=== PATIENT | female | born 1960 | race American Indian/Alaskan Native ===

== ENCOUNTER 2020-09-11 04:51 | Emergency (ER) | payer MEDICARE ==
[2020-09-11 05:19] VITALS: BP 117/91
[2020-09-11 06:24] LABS: Basophils # (Auto) 0.1 K/mm3 (0.0-0.1); Basophils % (Auto) 0.8 % (0.0-1.8); Eosinophils # (Auto) 0.1 K/mm3 (0.0-0.4); Eosinophils % (Auto) 1.1 % (0.0-4.3); Hemoglobin 14.9 gm/dl (10.1-14.3); Lymphocytes # (Auto) 2.6 K/mm3 (1.2-5.4); Lymphocytes % (Auto) 34.5 % (13.4-35.0); Mean Corpuscular HGB Conc 34 % (30-34); Mean Corpuscular Volume 92 fl (79-97); Monocytes # (Auto) 0.7 K/mm3 (0.0-0.8); Monocytes % (Auto) 9.1 % (0.0-7.3); Platelet Count 392 K/mm3 (140-440); Red Blood Count 4.77 M/mm3 (3.65-5.03)
[2020-09-11 06:27] LABS: Alanine Aminotransferase 15 units/L (7-56); Albumin 4.3 g/dL (3.9-5); BUN/Creatinine Ratio 15; Blood Urea Nitrogen 12 mg/dL (7-17); Calcium 10.1 mg/dL (8.4-10.2); Hemolysis Index 7
[2020-09-11 06:48] LABS: Bilirubin,Urine NEG (Negative); Blood,Urine MOD (Negative); Color,Urine Yellow (Yellow); Hyaline Casts,Urine 1 /LPF; Mucus,Urine 1+ /HPF; Protein,Urine <15 mg/dL mg/dL (Negative); Urobilinogen,Urine < 2.0 mg/dL (<2.0)
--- NOTE | 2020-09-11 07:54 | Emergency Department Report ---
ED General Adult HPI - General Chief complaint: Abdominal Pain Stated complaint: BACK AND PAIN IN BOTH SIDES Time Seen by Provider: 09/11/20 07:44 Source: patient, EMS Mode of arrival: Ambulatory Limitations: No Limitations - History of Present Illness Initial comments: This is a very pleasant 60-year-old female who presents the emergency department the chief complaint of right-sided flank pain over the past 5 days. Patient reports in May she had an injury where she injured the right side of her back and has had chronic pain since. She has been taking ibuprofen for the pain is concerned she may have overdone it on the ibuprofen and wants to make sure her kidneys are still functioning normally. She denies any dysuria, hematuria, fever, chills, night sweats, headache, dizziness, blurred vision, nausea, vomiting, diarrhea, weakness or any other associated symptoms. She denies any pain in the abdomen. Her pain is aggravated with movement specifically twisting the upper body and flexion. She states she has had cramping pain in the mid back that she rates as a 8 out of 10 in severity. - Related Data Home Medications Medication Instructions Recorded Confirmed Last Taken Ibuprofen [Motrin 400 MG tab] 400 mg PO Q8H PRN 11/24/14 11/24/14 Unknown Pravastatin [Pravachol] 40 mg PO QHS 11/24/14 11/24/14 Unknown Ranitidine HCl [Ranitidine] 150 day PO BID 11/24/14 11/24/14 Unknown Venlafaxine Xr [Effexor XR] 75 mg PO DAILY 11/24/14 11/24/14 Unknown Previous Rx's Medication Instructions Recorded Last Taken Type Sennosides/Docusate Sodium 1 each PO BID #16 tablet 11/28/14 Unknown Rx [Sennosides-Docusate Sodium Tab] levoFLOXacin [Levaquin] 500 mg PO QDAY #4 tablet 11/28/14 Unknown Rx metroNIDAZOLE [Flagyl] 500 mg PO Q8HR #12 tablet 11/28/14 Unknown Rx oxyCODONE /ACETAMINOPHEN [Percocet 1 tab PO Q6HR PRN #24 tablet 11/28/14 Unknown Rx 5/325] methOCARBAMOL [Robaxin TAB] 500 mg PO Q6H #20 tablet 09/11/20 Unknown Rx methylPREDNISolone [Medrol 4MG 4 mg PO ONCE #1 tab.ds.pk 09/11/20 Unknown Rx DOSEPAK (21 tabs)] Allergies Allergy/AdvReac Type Severity Reaction Status Date / Time No Known Allergies Allergy Verified 12/27/14 12:11 ED Review of Systems ROS: Stated complaint: BACK AND PAIN IN BOTH SIDES Other details as noted in HPI Comment: All other systems reviewed and negative Constitutional: denies: chills, fever Eyes: denies: eye pain, eye discharge, vision change ENT: denies: ear pain, throat pain Respiratory: denies: cough, shortness of breath, wheezing Cardiovascular: denies: chest pain, palpitations Endocrine: no symptoms reported Gastrointestinal: denies: abdominal pain, nausea, diarrhea Genitourinary: denies: urgency, dysuria, discharge Musculoskeletal: as per HPI, back pain. denies: joint swelling, arthralgia Skin: denies: rash, lesions Neurological: denies: headache, weakness, paresthesias Psychiatric: denies: anxiety, depression Hematological/Lymphatic: denies: easy bleeding, easy bruising ED Past Medical Hx - Past Medical History Previous Medical History?: Yes Hx Hypertension: (high cholesterol) Hx GERD: Yes Hx Psychiatric Treatment: Yes (DEPRESSION) Additional medical history: TBI. IBS. HIGH CHOLESTEROL - Surgical History Additional Surgical History: HYSTERECTOMY. BRAIN SURGERY. RIGHT KNEE SURGERY. TEMP. COLOSTOMY AND REVERSAL - Social History Smoking Status: Current Every Day Smoker - Medications Home Medications: Home Medications Medication Instructions Recorded Confirmed Last Taken Type Ibuprofen [Motrin 400 MG tab] 400 mg PO Q8H PRN 11/24/14 11/24/14 Unknown History Pravastatin [Pravachol] 40 mg PO QHS 11/24/14 11/24/14 Unknown History Ranitidine HCl [Ranitidine] 150 day PO BID 11/24/14 11/24/14 Unknown History Venlafaxine Xr [Effexor XR] 75 mg PO DAILY 11/24/14 11/24/14 Unknown History Sennosides/Docusate Sodium 1 each PO BID #16 tablet 11/28/14 Unknown Rx [Sennosides-Docusate Sodium Tab] levoFLOXacin [Levaquin] 500 mg PO QDAY #4 tablet 11/28/14 Unknown Rx metroNIDAZOLE [Flagyl] 500 mg PO Q8HR #12 tablet 11/28/14 Unknown Rx oxyCODONE /ACETAMINOPHEN [Percocet 1 tab PO Q6HR PRN #24 tablet 11/28/14 Unknown Rx 5/325] methOCARBAMOL [Robaxin TAB] 500 mg PO Q6H #20 tablet 09/11/20 Unknown Rx methylPREDNISolone [Medrol 4MG 4 mg PO ONCE #1 tab.ds.pk 09/11/20 Unknown Rx DOSEPAK (21 tabs)] ED Physical Exam - General Limitations: No Limitations General appearance: alert, in no apparent distress - Head Head exam: Present: atraumatic, normocephalic - Eye Eye exam: Present: normal appearance - ENT ENT exam: Present: normal exam, normal orophraynx, mucous membranes moist - Neck Neck exam: Present: normal inspection, full ROM. Absent: tenderness, mening ismus - Respiratory Respiratory exam: Present: normal lung sounds bilaterally. Absent: respiratory distress, wheezes, rales, rhonchi, stridor - Cardiovascular Cardiovascular Exam: Present: regular rate, normal rhythm, normal heart sounds. Absent: systolic murmur, diastolic murmur, rubs, gallop - GI/Abdominal GI/Abdominal exam: Present: soft, normal bowel sounds, other (Negative Parrish sign, negative McBurney's point tenderness). Absent: distended, tenderness, guarding, rebound, rigid - Extremities Exam Extremities exam: Present: normal inspection, full ROM, normal capillary refill. Absent: tenderness, calf tenderness (No lower extremity edema, negative Homans' sign bilaterally) - Back Exam Back exam: Present: normal inspection, full ROM, tenderness (Tenderness to palpation over the right flank area ), muscle spasm, paraspinal tenderness. Absent: vertebral tenderness - Neurological Exam Neurological exam: Present: alert, oriented X3, CN II-XII intact, normal gait - Psychiatric Psychiatric exam: Present: normal affect, normal mood - Skin Skin exam: Present: warm, dry, intact, normal color. Absent: rash ED Course Vital Signs 09/11/20 09/11/20 05:16 07:43 Temperature 98.2 F Pulse Rate 97 H Respiratory 18 Rate Blood Pressure 117/91 O2 Sat by Pulse 92 99 Oximetry ED Medical Decision Making - Lab Data Result diagrams: 09/11/20 05:42 09/11/20 05:42 Lab Results 09/11/20 09/11/20 09/11/20 Range/Units 05:42 05:42 Unknown WBC 7.6 (4.5-11.0) K/mm3 RBC 4.77 (3.65-5.03) M/mm3 Hgb 14.9 H (10.1-14.3) gm/dl Hct 44.0 H (30.3-42.9) % MCV 92 (79-97) fl MCH 31 (28-32) pg MCHC 34 (30-34) % RDW 14.0 (13.2-15.2) % Plt Count 392 (140-440) K/mm3 Lymph % (Auto) 34.5 (13.4-35.0) % [place] % (Auto) 9.1 H (0.0-7.3) % Eos % (Auto) 1.1 (0.0-4.3) % Baso % (Auto) 0.8 (0.0-1.8) % Lymph # (Auto) 2.6 (1.2-5.4) K/mm3 [place] # (Auto) 0.7 (0.0-0.8) K/mm3 Eos # (Auto) 0.1 (0.0-0.4) K/mm3 Baso # (Auto) 0.1 (0.0-0.1) K/mm3 Seg Neutrophils % 54.5 (40.0-70.0) % Seg Neutrophils # 4.1 (1.8-7.7) K/mm3 Sodium 142 (137-145) mmol/L Potassium 4.5 (3.6-5.0) mmol/L Chloride 104.3 (98-107) mmol/L Carbon Dioxide 25 (22-30) mmol/L Anion Gap 17 mmol/L BUN 12 (7-17) mg/dL Creatinine 0.8 (0.6-1.2) mg/dL Estimated GFR > 60 ml/min BUN/Creatinine Ratio 15 % Glucose 104 H (65-100) mg/dL Calcium 10.1 (8.4-10.2) mg/dL Total Bilirubin 0.40 (0.1-1.2) mg/dL AST 20 (5-40) units/L ALT 15 (7-56) units/L Alkaline Phosphatase 95 (35-129) units/L Total Protein 7.8 (6.3-8.2) g/dL Albumin 4.3 (3.9-5) g/dL Albumin/Globulin Ratio 1.2 % Urine Color Yellow (Yellow) Urine Turbidity Clear (Clear) Urine pH 5.0 (5.0-7.0) Ur Specific [place] 1.018 (1.003-1.030) Urine Protein <15 mg/dl (Negative) mg/dL Urine Glucose (UA) Neg (Negative) mg/dL Urine Ketones Neg (Negative) mg/dL Urine Blood Mod (Negative) Urine Nitrite Neg (Negative) Urine Bilirubin Neg (Negative) Urine Urobilinogen < 2.0 (<2.0) mg/dL Ur Leukocyte Esterase Neg (Negative) Urine WBC (Auto) 1.0 (0.0-6.0) /HPF Urine RBC (Auto) 3.0 (0.0-6.0) /HPF U Epithel Cells (Auto) 1.0 (0-13.0) /HPF Hyaline Casts 1 /LPF Urine Mucus 1+ /HPF - Medical Decision Making Patient presented emergency department chief complaint of right flank pain. Labs were drawn and relatively unremarkable. She had no right upper quadrant tenderness and negative Parrish sign with normal LFTs and bili making acute cholecystitis, cholelithiasis, choledocholithiasis unlikely. She had relatively normal urine with no significant hematuria or pyuria making kidney stones and pyelonephritis unlikely respectively. She had relatively normal vital signs with heart rate below 100 and O2 sat in the room was 99% on room air with a low Wells risk for PE making this unlikely. She had no pleuritic pain with deep breaths or shortness of breath. She had normal lung sounds no fever making a pneumonia unlikely. The patient's pain was reproducible on palpation and movement and suspect this is likely musculoskeletal in origin. Recommended naproxen and Robaxin and outpatient follow-up with her primary care doctor. Recommended if her symptoms change or worsen she return to the emergency dep artment for reevaluation. She verbalized understand the diagnosis, treatment plan and follow-up instructions and all of her questions were answered. I did offer to do a scan, however the patient politely declined and preferred to follow up wiht her PCP. - Differential Diagnosis strain, spasm, fracture, nephrolithiasis, Pyelonephritis, PE Critical care attestation.: If time is entered above; I have spent that time in minutes in the direct care of this critically ill patient, excluding procedure time. ED Disposition Clinical Impression: Acute thoracic myofascial strain Qualifiers: Encounter type: initial encounter Qualified Code(s): S29.019A - Strain of muscle and tendon of unspecified wall of thorax, initial encounter Disposition: TO HOME OR SELFCARE Is pt being admited?: No Condition: Stable Instructions: Abdominal Pain (ED), Muscle Strain, [id number] Prescriptions: methylPREDNISolone [Medrol 4MG DOSEPAK (21 tabs)] 4 mg PO ONCE #1 tab.ds.pk methOCARBAMOL [Robaxin TAB] 500 mg PO Q6H #20 tablet Referrals: [facility] [Provider Group] - 3-5 Days Time of Disposition: 07:56
== END 2020-09-11 08:12 | disposition home or self-care (01) ==
LOC: ED 04:51
DX: S29.019A Strain of muscle and tendon of unspecified wall of thorax, initial encounter (principal); K21.9 Gastro-esophageal reflux disease without esophagitis; F32.9 Major depressive disorder, single episode, unspecified; F17.200 Nicotine dependence, unspecified, uncomplicated; Z90.710 Acquired absence of both cervix and uterus; Z98.890 Other specified postprocedural states; X58.XXXA Exposure to other specified factors, initial encounter; Y93.89 Activity, other specified; Y92.89 Other specified places as the place of occurrence of the external cause; Y99.8 Other external cause status
CPT/HCPCS: 36415; 80053; 81001; 85025